=== PATIENT | male | born 1980 | race Two or more races ===

== ENCOUNTER 2024-10-14 00:34 | Emergency (ER) | payer OTHER, SELFPAY ==
[2024-10-14 00:37] VITALS: BMI 45.6
[2024-10-14 01:00] VITALS: BP 159/88; PULSE 93; RESP 18; TEMP 36.9; O2SAT 99
[2024-10-14] MEDS: NAPROXEN 250 MG TABLET 500 MG PO (02:22)
[2024-10-14 02:49] VITALS: BP 151/94; PULSE 80; RESP 17; TEMP 36.8; O2SAT 98
--- NOTE | 2024-10-14 03:37 | EDNOTE_ITS ---
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 Patient denies fall/trauma. Limitations: no limitations Related Data Previous Rx's ?Medication ?Instructions ?Recorded naproxen 500 mg tablet 500 mg PO BID PRN pain #30 t abs 10/14/24 Allergies Allergy/AdvReac Type Severity Reaction Status Date / Time No Known Allergies Allergy Verified 10/14/24 00:37 Review of Systems Review of Systems Systems Reviewed: All systems reviewed, normal except as documented Constitutional Constitutional: Reports system reviewed and no additional complaints, except as documented, Denies fever(s) and Denies headache(s) ENT Ears, Nose, Mouth, and Throat: Denies disequilibrium and Denies headache(s) Cardiovascular Cardiovascular: Reports system reviewed and no additional complaints, except as documented, Denies chest pain and Denies dyspnea Respiratory Respiratory: Reports system reviewed and no additional complaints, except as documented, Denies cough and Denies dyspnea Gastrointestinal Gastrointestinal: Reports system reviewed and no additional complaints, except as documented, Denies abdominal pain, Denies nausea and Denies vomiting Musculoskeletal Musculoskeletal: Reports as per HPI, Reports arthralgias and Reports tingling Neurologic Neurologic: Reports system reviewed and no additional complaints, except as documented, Denies confusion, Denies disequilibrium, Denies headache(s) and Reports tingling Psychiatric Psychiatric: Denies confusion Past Medical History Social History SMOKING STATUS: Former smoker ED Exam General Limitations: Present no limitations General appearance: Present alert and in no apparent distress Head Head exam: Present atraumatic Eye Eye exam: Present normal appearance, PERRL and EOMI ENT ENT exam: Present normal exam, normal oropharynx and mucous membranes moist Neck Neck exam: Present normal inspection, full ROM and trachea midline Chest Chest inspection: Present normal inspection and symmetric chest wall rise Respiratory Respiratory exam: Present normal lung sounds bilaterally Cardiovascular Cardiovascular exam: Present regular rate, normal rhythm and normal heart sounds Abdominal Exam Abdominal exam: Present soft and normal bowel sounds Extremities Exam Extremities exam: Present normal inspection and full ROM Back Exam Back exam: Present normal inspection and full ROM Neurological Exam Neurological exam: Present alert, oriented X3 and CN II-XII intact Psychiatric Psychiatric exam: Present normal affect and normal mood Skin Skin exam: Present warm, dry, intact and normal color Course Quality Measures none Orders Category Date Time Status Naproxen [Naprosyn] Med 10/14/24 01:45 Discontinued 500 mg PO X1 ONE Vital Signs Vital signs: Vital Signs Temperature 98.5 F 10/14/24 01:00 Pulse Rate 93 10/14/24 01:00 Respiratory Rate 18 10/14/24 01:00 Blood Pressure 159/88 H 10/14/24 01:00 Pulse Oximetry (%) 99 10/14/24 01:00 Oxygen Delivery Method Room Air 10/14/24 01:00 O2 at 99% on RA and WNLs Extremity Injury MDM Narrative MDM Narrative:: 43M with no significant PMH presents to ED with 2 days of R wrist/hand pain, tingling, and 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 Patient denies fall/trauma. Physical exam reveals no gross swelling. Pain starts at R radial nerve and shoots to first 3 fingers. ROM intact. Patient is afebrile, calm, and alert. Likely carpal tunnel-related syndrome. [employer] and meds given. Patient data External records reviewed:: None Clinical information provided by:: patient Social determinants that could affect healthcare access:: none Patient has the following chronic illnesses:: none How is presenting disease/condition affected by chronic disease/condition?: no chronic disease Evaluation data The following diagnostics were reviewed and interpreted by me:: other (specify) (none) Lab and/or radiology exams considered but not ordered:: not ordered Interpretation Summary: n/a Medications / Prescriptions Medications or Prescriptions considered but not ordered:: ordered Medication administrations:: Medication Administration History Discontinued Medications Naproxen (Naproxen 250 Mg Tablet) 500 mg PO X1 ONE Stop: 10/14/24 01:46 Last Admin: 10/14/24 02:22 Dose: 500 mg Documented By: CP above Consultations Consultation(s) initiated? (list below): No Diagnosis Upper Extremity Injury Differential Diagnosis: sprain and strain of wrist, fracture of wrist, finger sprain, dislocation of finger, Colles' fracture, fracture of hand and other (carpal tunnel sydnrome) Most likely diagnosis given after review of the tests above:: carpal tunnel sydnrome Admission Indicated Admission indicated?: not indicated Admission Request Was there a request for admission?: No Disposition Plan Disposition Plan: Discharge Discharge Attestation Discharge Attestation: The patient and all family members were given an opportunity to ask questions and understood the discharge instructions. Discharge instructions specifically effects, indications for sooner follow up or return to the emergency department, and the expected course of current diagnosis. Patient condition: Stable Discharge Plan Plan Patient Disposition: HOME (Self Care) Discharge Disposition comment: Stable Prescriptions/Referrals Prescriptions/Med Rec: New naproxen 500 mg tablet 500 mg PO BID PRN (Reason: pain) Qty: 30 0RF Referrals: No Primary/Family,Physician [Primary Care Provider] - In 1 week Problem List Clinical Impression: Acute carpal tunnel syndrome Patient/Caregiver Discharge Instructions Education Materials: ED Carpal Tunnel Syndrome Additional Instructions: Please follow-up with PCP within 24-48 hours and return immediately if symptoms worsen. If problem persists, recommend outpatient PT and/or MRI follow-up. In the meantime, rest, use ice/heat, and/or compression. Print Language: Hebrew Stand Alone Forms: Patient Portal Info Letter PA/HEALTH CARE MANAGER Supervising Physician CHRISTINA/ARYAN Supervising Physician: Dr. Joiner
== END 2024-10-14 02:50 | disposition home or self-care (01) ==
PROVIDERS: Emergency Provider Emergency Medicine
DX: G56.01 Carpal tunnel syndrome, right upper limb (principal)
CPT/HCPCS: 99282; A9270